=== PATIENT | male | born 1990 | race African-American/Black ===

== ENCOUNTER 2018-11-19 06:55 | Emergency (ER) | payer BC, MEDICAID ==
[~2018-11-19] VITALS: Ht 188 cm; Wt 87.0 kg
[2018-11-19] MEDS ORDERED: KETOROLAC 60MG/2ML VIAL IM STA (08:29)
[2018-11-19 09:50] VITALS: BP 132/88
== END 2018-11-19 10:10 | disposition home or self-care (01) ==
LOC: ER 07:20
DX: S00.83XA Contusion of other part of head, initial encounter (principal); M25.511 Pain in right shoulder; Y08.89XA Assault by other specified means, initial encounter; Y93.9 Activity, unspecified; Y92.9 Unspecified place or not applicable
CPT/HCPCS: 70110; 73030; 96372; 99283; J1885